=== PATIENT | female | born 1945 | race Caucasian/White ===

== ENCOUNTER 2023-08-23 12:33 | Emergency (ER) | payer SELFPAY ==
[2023-08-23 12:57] VITALS: BP 147/68; RESP 16; TEMP 98.5; BMI 24.0
[2023-08-23 13:16] VITALS: PULSE 84
== END 2023-08-23 13:23 | disposition home or self-care (01) ==
LOC: FER 12:33
DX: R09.89 Other specified symptoms and signs involving the circulatory and respiratory systems (principal); R05.9 Cough, unspecified
CPT/HCPCS: 99282-25